=== PATIENT | male | born 1990 | race Caucasian/White ===

== ENCOUNTER 2017-08-04 22:03 | Emergency (ER) | payer SELFPAY ==
[~2017-08-04] VITALS: Ht 190.5 cm; Wt 90.7 kg
[~2017-08-04 22:03] MED LIST: AMOXIL500 MG PO; BENZONATATE100 MG PO; CIPRO 500MG TA500 MG PO; FLEXERIL10 M1 PO; FLEXERIL10 MG PO; HYDROCHLOROTH12.5 M1 PO; KEFLEX 500MG.500 MG PO; LOMOTIL 2.5MG.2.5 MG PO; NOMEDS *; OMEPRAZOLE40 MG PO; PHENERGAN 25MG.25 M1 PO; PHENERGAN VC +120 ML PO; PRILOSEC20 M1 PO; Prilosec20 MG; SEPTRA DS 800 M1 TAB PO; TAMIFLU75 MG PO; TESSALON PERLE100 M1 PO; TESSALON PERLE200 MG PO; TRAMADOL 50MG T50 M1 PO; VIBRAMYCIN 100100 MG PO; VOLTAREN75 MG PO; WELLBUTRIN 150150 MG PO
--- OUTSIDE RECORDS SUMMARY | 2017-08-04 22:46 | External Medical Summary Rpt | CCD ---
Author Author , LACI Organization [facility] Address Unknown Phone [email or web address] Care Team Providers Care Veterinary X Ray Operator Name Role Phone RANDAL BARCLAY, Unavailable Unavailable RANDAL BARCLAY J, Unavailable Unavailable Rod LEACH BURGESS Unavailable Unavailable KINGSLEY TREVINO, Unavailable Unavailable [facility] Un[facility] Un[facility], [facility] CYNDEE BURCH, Unavailable Unavailable KATERIN HINOJOSA, Unavailable Unavailable KATERIN HUNT MICHAEL L, Unavailable Unavailable BRE LEHMAN [facility], Unavailable Unavailable [facility] ANA MCNEIL, Unavailable Unavailable ANA MCNEIL [facility] Unavailable Unavailable #571, [facility] Unavailable Unavailable #591, [facility] WEHRMAN III MIGUEL, Unavailable Unavailable WEHRMAN III MIGUEL Purpose Continuity of Care Document - 11-08-2007 through 2016 Problems Code Diagnosis DOS Provider Status 01450 ACUT 07-25-2013 [facility] ROSALES SUPPRATV OTITIS MEDIA W/O SPONT RUP EARDRUM 4019 UNSPECIFIED 10-08-2012 WEHRMAN III ESSENTIAL MIGUEL HYPERTENSIO N 4871 INFLUENZA 10-08-2012 WEHRMAN III WITH OTHER MIGUEL RESPIRATORY MANIFESTATI ONS 4660 ACUTE 08-06-2012 [facility] ROSALES BRONCHITIS V5869 LONG-TERM 07-29-2012 [facility] USE OF INC OTHER MEDICATIONS 462 ACUTE 07-10-2012 [facility]ES PHARYNGITIS 5780 HEMATEMESIS 07-10-2012 [facility]ES V720 EXAMINATION 06-06-2012 [facility] 24389 DIAB W/O 06-04-2012 [facility] II/UNS NOT STATED UNCNTRL V700 ROUTINE 06-04-2012 [facility] MEDICAL [email or web address] CARE FACL 35933 UNSPECIFIED 01-14-2009 [facility] DENTAL ANESTHESIA [facility] PSC [id number] PRE-OPERATI 01-07-2009 [facility] CARDI[facility] CLINIC LAR EXAMINATION 4619 ACUTE 12-21-2008 , SINUSITIS, KINGSLEY UNSPECIFIED 90470 OBESITY, 11-19-2008 , UNSPECIFIED KINGSLEY 72878 PAINFUL 05-19-2008 [facility] 8471 THORACIC 05-19-2008 [facility] 99859 CONTUSION 02-12-2008 [facility] 9597 INJURY 02-12-2008 [facility] [place] OTHER&UNSPE RADIOLOGY CIFIED KNEE LEG ANKLE&FOOT E9069 UNSPECIFIED 02-12-2008 [facility] IN[facility] CAUSED BY PHYS INC ANIMAL 4659 ACUTE URIS 11-08-2007 MILO [facility] UNSPECIFIED SITE Medications Na ND Rx Da Fi Fi Am Da Di Ph RX Ph St me C No te ll ll ou ys ag ar # ys at rm s nt no ma ic us Or Da si cy ia de te s n re d NC 68 05 05 00 15 3 WA 70 ME Ac OM 38 -1 -2 .0 L- 20 AD ti ET 20 4 00 MA 53 E ve HARMON 04 20 20 RT 9 DM ZI 10 09 09 D NE 1 PH JE AR WE 25 MA LL CY MG #5 TA 91 BL ET AM 00 05 05 00 21 7 WA 70 ME Ac OX 78 -1 -2 .0 L- 20 AD ti IC 12 4 1 00 MA 54 E ve IL 61 20 20 RT 0 DM LI 30 09 09 D N 5 PH JE 50 AR WE 0 MA LL MG CY CA #5 PS 91 UL E 00 05 05 00 30 2 WA 44 ME Ac 40 -1 -2 .0 L- 76 AD ti 60 4- 1- 00 MA 66 E ve 35 20 20 RT 8 DM 80 09 09 D 1 PH JE AR WE MA LL CY #5 91 DI 00 03 03 00 45 30 WA 70 BU Ac FF 29 -1 -2 .0 L- 12 RG ti ER 95 9- 6- 00 MA 99 ES ve IN 91 20 20 RT 0 S 54 09 09 KE 0. 5 PH LL 1% AR Y MA CR CY EA M #5 91 CE 00 11 12 00 14 7 WA 69 BU Ac FD 78 -1 -0 .0 L- 96 RG ti IN 12 9 4 00 MA 32 ES ve IR 17 20 20 RT 6 S 66 08 08 KE 30 0 PH LL 0 AR Y MG MA CY CA PS #5 UL 91 E AZ 00 11 11 00 6. 5 WA 70 BU Ac IT 78 -1 -2 00 L- 93 RG ti HR 11 1- 0- 0 MA 80 ES ve OM 49 20 20 RT 2 S YC 66 08 08 KE IN 8 PH LL AR Y 25 MA 0 CY MG #5 TA 71 BL ET NC 37 10 11 00 60 60 WA 88 BU Ac IL 00 -3 -0 .0 L- 13 RG ti OS 00 0- 7- 00 MA 01 ES ve EC 45 20 20 RT 6 S 50 08 08 KE OT 4 PH LL C AR Y 20 MA .6 CY MG #5 91 TA BL ET ME 00 10 11 00 60 30 WA 69 BU Ac TF 78 -3 -0 .0 L- 93 RG ti OR 15 0- 7- 00 MA 45 ES ve WI 05 20 20 RT 5 S N 06 08 08 KE HC 1 PH LL L AR Y 50 MA 0 CY MG #5 TA 91 BL ET DI 00 09 09 00 14 7 WA 69 GA Ac CL 78 -1 -2 .0 L- 87 IN ti OF 11 7- 6- 00 MA 73 EY ve EN 78 20 20 RT 7 AC 90 08 08 WI 1 PH CH SO AR AE D MA L EC CY S 75 #5 91 MG TA B 63 09 09 00 14 7 WA 69 GA Ac 30 -1 -2 .0 L- 87 IN ti 40 6- 6- 00 MA 73 EY ve 71 20 20 RT 9 00 08 08 WI 1 PH CH AR AE MA L CY S #5 91 00 09 09 00 14 7 WA 69 GA Ac 37 -1 -2 .0 L- 87 IN ti 80 6- 6- 00 MA 73 EY ve 75 20 20 RT 8 19 08 08 WI 3 PH CH AR AE MA L CY S #5 91 TR 00 06 07 00 20 5 WA 69 No Ac AM 37 -1 -0 .0 L- 76 t ti AD 84 1- 3- 00 MA 79 Av ve OL 15 20 20 RT 0 ai 10 08 08 la HC 1 PH bl L AR e 50 MA CY MG #5 TA 91 BL ET AM 00 06 07 00 14 7 WA 69 BU Ac OX 09 -1 -0 .0 L- 76 RG ti IC 32 9- 3- 00 MA 55 ES ve IL 26 20 20 RT 9 S LI 40 08 08 KE N 1 PH LL 87 AR Y 5 MA MG CY TA #5 BL 91 ET 14 03 04 00 40 10 WA 69 No Ac 62 -0 -0 .0 L- 63 t ti 90 7- 7- 00 MA 27 Av ve 10 20 20 RT 6 ai 20 08 08 la 1 PH bl AR e MA CY #5 91 Encounters Encounter Start End Date Code Location Performer Type Date [facility] - 3 3 [facility] 8 [facility]
--- OUTSIDE RECORDS SUMMARY | 2017-08-04 22:46 | External Medical Summary Rpt | CCD ---
Author Author , LACI Organization [facility] Address Unknown Phone [email or web address] Care Team Providers Care Women'S Swim Coach Name Role Phone RANDAL BARCLAY, Unavailable Unavailable RANDAL BARCLAY J, Unavailable Unavailable Rod LEACH BURGESS Unavailable Unavailable KINGSLEY TREVINO, Unavailable Unavailable [facility] Unavailable Unavailable INC, [facility] CYNDEE BURCH, Unavailable Unavailable KATERIN HINOJOSA, Unavailable Unavailable KATREIN HUNT MICHAEL L, Unavailable Unavailable BRE LEHMAN [facility], Unavailable Unavailable [facility] ANA MCNEIL, Unavailable Unavailable ANA MCNEIL [facility] Unavailable Unavailable #571, [facility] Unavailable Unavailable #591, [facility] WEHRMAN III MIGUEL, Unavailable Unavailable WEHRMAN III MIGUEL Purpose Continuity of Care Document - 11-08-2007 through 2016 Problems Code Diagnosis DOS Provider Status 08760 ACUT 07-25-2013 [facility]ALES SUPPRATV OTITIS MEDIA [...] 06-06-2012 [facility] 86348 DIAB W/O 06-04-2012 [facility] II/UNS NOT STATED UNCNTRL V700 ROUTINE 06-04-2012 [facility] MEDICAL [email or web address]@[email or web address] CARE FACL 49640 UNSPECIFIED 01-14-2009 [facility] DENTAL ANESTHESIA [facility] PSC [id number] PRE-OPERATI 01-07-2009 [facility] CARDIOV[facility] CLINIC LAR EXAMINATION 4619 ACUTE 12-21-2008 , SINUSITIS, KINGSLEY UNSPECIFIED 26332 OBESITY, 11-19-2008 , UNSPECIFIED KINGSLEY 53303 PAINFUL 05-19-2008 [facility] 8471 THORACIC 05-19-2008 [facility] 04181 CONTUSION 02-12-2008 [facility] [...] ia de te s n re d IL 68 05 05 00 15 3 WA [...] CY MG #5 TA 71 BL ET IL 37 10 11 00 60 60 WA [...] 0- 7- 00 MA 45 ES ve KS 05 20 20 RT 5 S N [...] 20 RT 7 AC 90 08 08 KS 1 PH CH SO AR AE D MA L EC CY S 75 #5 91 MG TA B 63 09 09 00 14 7 WA 69 GA Ac 30 -1 -2 .0 L- 87 IN ti 40 6- 6- 00 MA 73 EY ve 71 20 20 RT 9 00 08 08 KS 1 PH CH AR AE MA L CY S #5 91 00 09 09 00 14 7 WA 69 GA Ac 37 -1 -2 .0 L- 87 IN ti 80 6- 6- 00 MA 73 EY ve 75 20 20 RT 8 19 08 08 KS 3 PH CH AR AE MA L [...] End Date Code Location Performer Type Date [facility] - 3 3 [facility] - 2 2 [facility] - 8 8 [facility]
--- OUTSIDE RECORDS SUMMARY | 2017-08-04 22:47 | External Medical Summary Rpt | CCD ---
Demographics Preferred Language Djiboutian Marital Status Unknown Taoist Affiliation Unknown Race Unknown Ethnic Group Unknown Author Author , LACI AGUERO Address Unknown Phone Immunization No patient found.
--- OUTSIDE RECORDS SUMMARY | 2017-08-04 22:47 | External Medical Summary Rpt | CCD ---
Author Author , LACI [place] LACI Address Unknown Phone [email or web address] Care Team Providers Care Telegraphic Typewriter Mechanic Name Role Phone RANDAL BARCLAY, Unavailable Unavailable RANDAL BARCLAY J, Unavailable Unavailable Rod LEACH BURGESS Unavailable Unavailable KINGSLEY TREVINO, Unavailable Unavailable [facility] Unavailable Unavailable INC, [facility] CYNDEE BURCH, Unavailable Unavailable KATERIN HINOJOSA, Unavailable Unavailable KATERIN HUNT MICHAEL L, Unavailable Unavailable BRE LEHMAN [facility], Unavailable Unavailable [facility] ANA MCNEIL, Unavailable Unavailable ANA MCNEIL [facility] Unavailable Unavailable #571, [facility] Unavailable Unavailable #591, [facility] WEHRABIGAIL III MIGUEL, Unavailable Unavailable WEHRMAN III MIGUEL Purpose Continuity of Care Document - 11-08-2007 through 2016 Problems Code Diagnosis DOS Provider Status 57648 ACUT 07-25-2013 [facility] ROSALES SUPPRATV OTITIS MEDIA [...] 06-06-2012 [facility] 96950 DIAB W/O 06-04-2012 [facility] II/UNS NOT STATED UNCNTRL V700 ROUTINE 06-04-2012 [facility] MEDICAL EXAM@HEALTH CARE FACL 64391 UNSPECIFIED 01-14-2009 [facility] DENTAL ANESTHESIA [facility] PSC V7281 PRE-OPERATI 01-07-2009 [facility] CARDIOV[facility] CLINIC LAR EXAMINATION 4619 ACUTE 12-21-2008 , SINUSITIS, KINGSLEY UNSPECIFIED 41871 OBESITY, 11-19-2008 RAMIREZ, UNSPECIFIED KINGSLEY 57333 PAINFUL 05-19-2008 [facility] 8471 THORACIC 05-19-2008 [facility] 41444 CONTUSION 02-12-2008 [facility] [...] ia de te s n re d SD 68 05 05 00 15 3 WA 70 ME Ac OM 38 -1 -2 .0 L- 20 AD ti ET 20 4- 1- 00 MA 53 E ve HARMON 04 20 20 RT 9 DM ZI 10 09 09 D NE 1 PH JE AR WE 25 MA LL CY MG #5 TA 91 BL ET 00 05 05 00 30 2 WA 44 ME Ac 40 -1 -2 .0 L- 76 AD ti 60 4- 1- 00 MA 66 E ve 35 20 20 RT 8 DM 80 09 09 D 1 PH JE AR WE MA LL CY #5 91 AM 00 05 05 00 21 7 WA 70 ME Ac OX 78 -1 -2 .0 L- 20 AD ti IC 12 4- 1- 00 MA 54 E ve IL 61 20 20 RT 0 DM LI 30 09 09 D N 5 PH JE 50 AR WE 0 MA LL MG CY CA #5 PS 91 UL E DI 00 03 03 00 45 30 [...] .0 L- 96 RG ti IN 12 9- 4- 00 MA 32 ES ve IR 17 [...] CY MG #5 TA 71 BL ET SD 37 10 11 00 60 60 WA [...] 0- 7- 00 MA 45 ES ve CO 05 20 20 RT 5 S N 06 08 08 KE HC 1 PH LL L AR Y 50 MA 0 CY MG #5 TA 91 BL ET 00 09 09 00 14 7 WA 69 GA Ac 37 -1 -2 .0 L- 87 IN ti 80 6- 6- 00 MA 73 EY ve 75 20 20 RT 8 19 08 08 CO 3 PH CH AR AE MA L CY S #5 91 DI 00 09 09 00 14 7 WA 69 GA Ac CL 78 -1 -2 .0 L- 87 IN ti OF 11 7- 6- 00 MA 73 EY ve EN 78 20 20 RT 7 AC 90 08 08 CO 1 PH CH SO AR AE D MA L EC CY S 75 #5 91 MG TA B 63 09 09 00 14 7 WA 69 GA Ac 30 -1 -2 .0 L- 87 IN ti 40 6- 6- 00 MA 73 EY ve 71 20 20 RT 9 00 08 08 CO 1 PH CH AR AE MA L [...] End Date Code Location Performer Type [facility] - [facility]
--- OUTSIDE RECORDS SUMMARY | 2017-08-04 22:47 | External Medical Summary Rpt ---
Author Author LACI Camacho, [employer] Organization [employer] Address Unknown Phone Unavailable
--- OUTSIDE RECORDS SUMMARY | 2017-08-04 22:47 | External Medical Summary Rpt | CCD ---
Demographics Preferred Language Cymraes Marital Status Unknown Scientology Affiliation Unknown Race Unknown Ethnic Group Unknown Author Author , LACI AGUERO Address Unknown Phone Immunization No patient found.
--- OUTSIDE RECORDS SUMMARY | 2017-08-04 22:47 | External Medical Summary Rpt | CCD ---
Author Author , LACI Park LACI Address Unknown Phone [email or web address] Care Team Providers Care Order Desk Caller Name Role Phone RANDAL BARCLAY, Unavailable Unavailable [...] 2016 Problems Code Diagnosis DOS Provider Status 01838 ACUT 07-25-2013 [facility] ROSALES SUPPRATV OTITIS MEDIA [...] 06-06-2012 [facility] 85312 DIAB W/O 06-04-2012 [facility] II/UNS NOT STATED UNCNTRL V700 ROUTINE 06-04-2012 [facility] MEDICAL EXAM@[email or web address] CARE FACL 56059 UNSPECIFIED 01-14-2009 [place] D[facility]AL ANESTHESIA [facility] PSC V7281 PRE-OPERATI 01-07-2009 [facility] CARDIOVASCU CLINIC LAR EXAMINATION 4619 ACUTE 12-21-2008 , SINUSITIS, KINGSLEY UNSPECIFIED 79200 OBESITY, 11-19-2008 RAMIREZ, UNSPECIFIED KINGSLEY 66246 PAINFUL 05-19-2008 [facility] 8471 THORACIC 05-19-2008 [facility] 33576 CONTUSION 02-12-2008 [facility] [...] ia de te s n re d ID 68 05 05 00 15 3 WA [...] CY MG #5 TA 71 BL ET ID 37 10 11 00 60 60 WA [...] 0- 7- 00 MA 45 ES ve [place] 05 20 20 RT 5 S N 06 08 08 KE HC 1 PH LL L AR Y 50 MA 0 CY MG #5 TA 91 BL ET 00 09 09 00 14 7 WA 69 GA Ac 37 -1 -2 .0 L- 87 IN ti 80 6- 6- 00 MA 73 EY ve 75 20 20 RT 8 19 08 08 [place] 3 PH CH AR AE MA L CY S #5 91 DI 00 09 09 00 14 7 WA 69 GA Ac CL 78 -1 -2 .0 L- 87 IN ti OF 11 7- 6- 00 MA 73 EY ve EN 78 20 20 RT 7 AC 90 08 08 [place] 1 PH CH SO AR AE D MA L EC CY S 75 #5 91 MG TA B 63 09 09 00 14 7 WA 69 GA Ac 30 -1 -2 .0 L- 87 IN ti 40 6- 6- 00 MA 73 EY ve 71 20 20 RT 9 00 08 08 [place] 1 PH CH AR AE MA L [...] End Date Code Location Performer Type Date [facility] - 3 3 [facility] - [facility]
[2017-08-04 22:55] LABS: HEMOGLOBIN 14.4 g/dL (14.1-18.0); LYMPH % 3.9 % (10-50)
--- NOTE | 2017-08-04 23:06 | Emergency Room Report ---
History of Present Illness Time Seen by [id number] Presenting Problem in Triage Pt arrived:Ambulance Stretcher Presenting Problem:OVERDOSE, MEDIC SREPORT HEROIN Onset of symptoms date/time:08/04/1710/20/2107 or onset unknown for: Treatment Prior to Arrival: NARCAN 4MG TOTAL IVF INFORMATION SECURITY ASSOCIATE Provided by:PATIENT NAVIGATOR Sepsis Risk Assessment: Temp: B/P: MAP: Pulse: 76 Resp: 30 Recent fever? N Clinical Suspician of Infection? N Mental Status: 3 - Acutely Altered Sepsis Risk:Severe Sepsis Risk Have you (or family members/close friends) recently traveled outside the [place]? N If Yes, where/when: Have you had exposure to infectious disease within the past month? TB? Other? Specify: Source patient, RN notes reviewed, EMS, old records Exam Limitations clinical condition Comment pt reports using heroin tonight and he reports not using any diabetic meds - pt found with reported needle in arm and was aroused with narcan Cardiac Chest Pain Chest pain indicative of cardiac No Timing/Duration this evening Severity moderate ALLERGIES Coded Allergies: buspirone (HEART PROBLEM 08/29/16) codeine (I-HIVES 08/29/16) Home Medications Active Scripts CEPHALEXIN (Keflex 500MG Capsule) 500 MG PO Q8H #30 CAP Prov: 08/29/16 SULFAMETHOXAZOLE/TRIMETHOPRIM (Sulfamethoxazole-Tmp Ds Tablet) 1 TAB PO BID #20 TAB Prov: 08/29/16 Oseltamivir Phosphate (Tamiflu) 75 MG PO BID #10 CAP Prov: 10/08/12 Reported Medications No Home Medications (NO HOME MEDICATIONS) 1 X * ONCE Omeprazole (Omeprazole 40MG) 40 MG PO DAILY History Medical History General Angina: No ME: No Hypertension? Yes Hyperlipidemia? No CHF? No COPD? No Asthma? No CVA? No Seizures? No Diabetes? Yes Insulin Dependent: No Insulin Pump: No Home FSBS? No GB Disease: No MRSA? No TB? No Cancer? No More? Yes Additional hx: HEP C KNOWN IV DRUG USE Immunization Hx DT/Tetanus Unknown Surgical Hx Previous Surgery?Y LEFT EAR R HAND Oral Surgery Social History Smoking Hx Smoker: Current Every Day Smoker Tobacco: Yes Type Cigarettes Packs/day < 1 Pack Alcohol Alcohol: No Drugs none Review of Systems All Other Systems Reviewed and Negative Constitutional denies fever Eyes denies drainage ENT denies: ear discharge, epistaxis, throat pain. Respiratory denies cough, denies shortness of breath, denies wheezing Cardiovascular denies chest pain, denies palpitations, denies syncope Gastrointestinal denies abdominal pain, denies diarrhea, denies vomiting Genitourinary denies: dysuria, frequency, hesitancy, hematuria. Musculoskeletal denies back pain, denies joint pain, denies joint swelling, denies neck pain Skin denies rash Psychiatric/Neurological denies headache, denies seizure Physical Exam Vital Signs Vital Signs Date Time Temp Pulse Resp B/P Pulse O2 O2 Flow FiO2 Ox Delivery Rate 08/05 0141 101.7 114 24 88 10 08/05 0100 101 24 111/69 93 10 08/05 0046 96.4 97 24 116/73 95 5 08/05 0025 97 24 116/73 95 5 08/04 2355 99 24 123/63 83 08/04 2350 101 24 123/63 95 5 08/04 2317 114 30 139/47 00 08/04 2204 76 30 96 5 General Appearance no apparent distress Eye Exam - bilateral eye PERRL, bilateral eye EOMI Ear, Nose, Throat normal ENT inspection Neck supple Respiratory Status No: respiratory distress. Lung Sounds right: rales. Cardiovascular regular rate/rhythm, systolic murmur Peripheral Pulses Pulses normal Yes Gastrointestinal soft, no organomegaly, no pulsatile mass, no guarding, no rebound Extremities normal inspection Strength 4 Upper Ext (L), 4 Upper Ext (R), 4 Lower Ext (L), 4 Lower Ext (R) Neurologic alert, day care center director II-XII nml as tested, no motor/sensory deficits Glascow Coma Scale Glascow Coma Scale Response Value EYE response: 4 Spontaneously 4 MOTOR response: 6 OBEYS 6 VERBAL response: 4 Disoriented & Converses 4 Total 14 Reflexes Reflexes normal No Mental status normal mood/affect Skin intact Medical Decision Making LABS/Meds/Orders Pt receiving controlled substance in ED? No Results/Orders Laboratory Tests 08/05/17 0040: ABG pH 7.30 L, ABG pCO2 (Temp Corrct 42.9, ABG pO2 (Temp Correct 44.6 *L, ABG HCO3 20.7 L, ABG Total CO2 22.0 L, ABG O2 Sat (Calculated) 80.0 *L, ABG Base Excess -5.7 L, Haile Test Y, Blood Gas Comments R/R 08/05/17 0023: Potassium 6.1 *H 08/04/17 2255: Opiates Screen NEGATIVE, Urine Methadone Screen NEGATIVE, Barbiturates NEGATIVE, Phencyclidine Screen NEGATIVE, Amphetamines Screen POSITIVE H, Benzodiazepines Screen NEGATIVE, Cocaine Screen NEGATIVE, Marijuana (THC) Screen POSITIVE H, Urine Color NEDA, Urine Appearance CLOUDY, Urine pH 5.5, Ur Specific [place] >= 1.030, Urine Protein 2+ H, Urine Ketones NEGATIVE, Urine Blood 3+ H, Urine Nitrate NEGATIVE, Urine Bilirubin NEGATIVE, Urine Urobilinogen 0.2, Ur Leukocyte Esterase NEGATIVE, Urine RBC 50-100, Amorphous Sediment 4+, Coarse Granular Casts 20-50, Urine Glucose 3+ H 08/04/17 2210: Sodium 133 L, Potassium 6.2 *H, Chloride 98, Carbon Dioxide 15 L, BUN 22 H, Creatinine 2.0 H, Estimated Creat Clear 71, Estimated GFR (MDRD) 40, Glucose 328 H, Calcium 8.6, Total Bilirubin 0.2, AST 230 H, ALT 133 H, Alkaline Phosphatase 114, Creatine Kinase 70075 H, CK-MB (CK-2) Rel Index 1.0, CK and CKMB Interp 134.0 *H, Troponin I 1.55 H, Total Protein 7.7, Albumin 3.6, Globulin 4.1 H, Albumin/Globulin Ratio 0.9 L, WBC 25.0 *H, RBC 4.97, Hgb 14.4, Hct 43.6, MCV 87.8, RDW 12.7, Plt Count 218, MPV 8.2, Gran % 89.7 H, Gran # 22.4 H, Total Counted Pending, Lymphocytes % 3.9 L, Monocytes % 6.3, Eosinophils % 0.1, Basophils % 0.0 L, Neutrophils Pending, Lymphocytes (Manual) Pending, Lymphocytes # 1.0, Monocytes # 1.6 H, Eosinophils # 0.0, Basophils # 0.0, Platelet Estimate Pending, PUBS MCHC 33.1, MCH 29.1, Salicylates 2.7 L, Acetaminophen 0 L, Alcohols 0 Current Medication Orders Sig/Luther Start time Last Medication Dose Route Stop Time Status Admin Naloxone HCl 0 .STK-MED ONE 08/05 119 DC .ROUTE Dextrose 50 ML ONCE ONE 08/05 115 DC 08/05 IVP 08/05 0116 0125 Insulin Human Regular 5 UNITS ONCE ONE 08/05 0115 DC IVP 08/05 0116 Naloxone HCl 2 MG ONCE ONE 08/05 0115 DC 08/05 IV 08/05 0116 0124 Insulin Human Regular 0 .STK-MED ONE 08/05 0109 DC .ROUTE Dextrose 0 .STK-MED ONE 08/05 0108 DC .ROUTE Sodium Polystyrene 0 .STK-MED ONE 08/05 010 DC Sulfonate .ROUTE Albuterol 2.5 MG ONCE ONE 08/05 0100 DC 08/05 INH 08/05 0101 0100 Albuterol 0 .STK-MED ONE 08/05 0100 DC INH Sodium Polystyrene 15 GM ONCE ONE 08/05 0045 DC 08/05 Sulfonate PO 08/05 0046 0111 Sodium Chloride 1,000 ML .STK-MED ONE 08/05 0036 DC IV Sodium Chloride 1,000 ML .Q4H 08/05 0030 AC 08/05 IV 08/05 0429 0039 Sodium Chloride 10 ML PRN PRN 08/05 0030 AC IV 08/06 0025 Naloxone HCl 2 MG ONCE ONE 08/04 2345 DC 08/04 IV 08/04 2346 2312 Naloxone HCl 2 MG 08/04 2315 CAN IV Naloxone HCl 0 .STK-MED ONE 08/04 2300 DC .ROUTE Sodium Chloride 10 ML PRN PRN 08/04 2245 AC IV 08/05 223 Sodium Chloride 10 ML PRN PRN 08/04 2230 AC IV 08/05 2228 Orders Procedure Date/time Status RT REQUEST ALBUTEROL NEB 08/05 0047 Active ARTERIAL BLOOD GAS REQUEST 08/05 0027 Active ELECTROCARDIOGRAM REQUEST 08/05 0022 Active POTASSIUM 08/05 0016 Complete 12 LEAD EKG-[facility] (INITIAL) 08/05 UNK Active URINARY CATHETER INSERT 08/04 230 Active CHEST-PORTABLE 08/04 2236 Active IV SALINE LOCK 08/04 2236 Active URINALYSIS/COMPLETE 08/04 2236 Complete SALICYLATE 08/04 2236 Complete DRUG ABUSE SCREEN (TRIAGE) 08/04 2236 Complete COMPLETE METABOLIC PANEL 08/04 2236 Complete CBC WITH AUTO DIFF 08/04 2236 Active CARDIAC ENZYMES 08/04 2236 Complete ALCOHOL 08/04 2236 Complete Acetaminophen 08/04 2236 Complete IV SALINE LOCK 08/04 2229 Active DIFFERENTIAL-WBC 08/04 2210 Active CM/EKG CM/mixer wet pour Rhythm Normal Sinus Rhythm EKG non-spec. ST/Twave chgs XRAY/CT/US XRAY/CT/US XRAY chest XR interpretation by reviewed by me Xray Results abnormal (rt pneumatitis) Departure Departure Time of Disposition 0141 Disposition DC/XFER from ER to [facility] Clinical Impression Primary Impression: Heroin overdose Qualifiers: Encounter type: initial encounter Injury intent: undetermined intent Qualified Code: T40.1X4A - Poisoning by heroin, undetermined, initial encounter Secondary Impressions: Diabetes mellitus Qualifiers: Diabetes mellitus type: type 1 Diabetes mellitus complication status: with unspecified complications Qualified Code: E10.8 - Type 1 diabetes mellitus with unspecified complications Elevated troponin Hyperkalemia Pneumonitis Renal insufficiency Rhabdomyolysis Qualifiers: Rhabdomyolysis type: non-traumatic Qualified Code: M62.82 - Rhabdomyolysis Condition STABLE Additional Instructions discussed with er attending - dr garcia Discharge Counseling Counseled pt/family regarding diagnosis, test results ED Critical Care Critical Care Yes Time spent 105-134 min Vital system(s) involved: Metabolic Failure, Respiratory Failure I was present at bedside for Coordinating pt's care, During my initial exam, Discussing pt condition, For re-examinations, Examining radiographs at 0150
[2017-08-04 23:11] LABS: URINE BILIRUBIN - DIPSTICK NEGATIVE (NEG); URINE BLOOD 3+ (NEG)
[2017-08-04 23:21] LABS: AMPHETAMINES/METAMPHETAMINES POSITIVE ng/mL (<1000)
[2017-08-05 00:41] LABS: ARTERIAL ABE -5.7 MMOL/L (-2.4-+2.3); ARTERIAL PO2 44.6 MMHG (80-100)
[2017-08-05 00:42] LABS: ALLEN'S TEST Y; OXYGEN 5
[2017-08-05 01:51] LABS: NEUTROPHILS 86 % (42-76)
[2017-08-05 02:40] VITALS: BP 122/60
--- NOTE | 2017-08-05 09:14 | RADIOLOGY REPORT PS360 ---
CHEST-PORTABLE Ordering Physician: Mason Guzman MD Patient Age: 27 years: Male HISTORY: sob overdose unresponsive TECHNIQUE: AP portable supine CXR COMPARISON :Previous CXR 10/08/2012 and August 2011 diffuse FINDINGS Diffuse infiltrates throughout the right lung-primarily alveolar in character slightly more evident centrally and towards the right upper lobe. It also patchy area at the medial right lung base, medial arel Most likely reflecting a pneumonia, pneumonitis possibly aspiration. Marked Asymmetric appearance the speaks against pulmonary edema The left lung appears clear with only mild vascular engorgement and upper normal Central markings. No pleural effusion no pneumothorax. The heart is upper normal in size giovanny and mediastinal structures unremarkable. Subtle azygos lobe. Chest wall unremarkable. IMPRESSION: ...... Diffuse infiltrate throughout right lung... Likely reflecting diffuse pneumonia/pneumonitis on right. Heart upper normal size.
== END 2017-08-05 02:47 | disposition short-term general hospital (02) ==
LOC: ER 22:03
PROVIDERS: Emergency Medicine
DX: T40.1X4A Poisoning by heroin, undetermined, initial encounter (principal); J96.00 Acute respiratory failure, unspecified whether with hypoxia or hypercapnia; E88.9 Metabolic disorder, unspecified; E10.9 Type 1 diabetes mellitus without complications; E87.5 Hyperkalemia; J18.9 Pneumonia, unspecified organism; N28.9 Disorder of kidney and ureter, unspecified; M62.82 Rhabdomyolysis
CPT/HCPCS: J2310